=== PATIENT | female | born 2000 | race African-American/Black ===

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

== ENCOUNTER → 2019-11-06 | Outpatient (CLI) | payer BC, OTHER ==
--- NOTE | 2019-11-06 14:52 | US ---
EXAMINATION TYPE: US pelvis complete transvag DATE OF EXAM: 11/06/2019 COMPARISON: NONE CLINICAL HISTORY: N94.10 DYSPAREUNIA. TECHNIQUE: Transvaginal (TV) and Transabdominal (TA) . Transabdominal sonographic images of the pel vis were acquired. Transvaginal sonographic images were medically necessary to better assess the fol lowing anatomy: Ovaries. Date of LMP: Not provided EXAM MEASUREMENTS: Uterus: 7.7 x 3.9 x 5.8 cm Endometrial Stripe: 1.2 cm Right Ovary: 5.3 x 2.2 x 4.5 cm Left Ovary: 3.8 x 1.4 x 3.3 cm 1. Uterus: Retroverted wnl 2. Endometrium: measures 1.2 cm 3. Right Ovary: mixed lesion with peripheral flow measures 2.2 x 1.7 x 1.9, probable hemorrhagic cys t. 4. Left Ovary: wnl Spectral, color and waveform doppler imaging shows good arterial and venous flow within the ovaries (particularly of the enlarged right ovary); there is no evidence for ovarian torsion. 5. Bilateral Adnexa: wnl 6. Posterior cul-de-sac: small amount of free fluid IMPRESSION: 1. Enlarged right ovary containing a 2.2 cm probable hemorrhagic cyst. Arterial and venous waveforms are seen to the enlarged right artery in echogenicity of the right ovary is unremarkable. Therefore o varian torsion was not seen at the time the examination. 2. Small amount of free fluid in posterior cul-de-sac, likely physiologic in nature.
== END | disposition home or self-care (01) ==
LOC: RADUSWWP 14:11
PROVIDERS: ATTEND Family Medicine
DX: N83.8 Other noninflammatory disorders of ovary, fallopian tube and broad ligament (principal)
CPT/HCPCS: 76830; 76856

== ENCOUNTER → 2020-04-23 | Day surgery (SDC) | payer BC, OTHER ==
[2020-04-21 15:40] VITALS: BMI 50.0
[~2020-04-23] MED LIST: IV FLUID CONTINUATION 1,000 ML IV ONE; LACTATED RINGERS 1,000 ML IV SCH; LIDOCAINE 1% (10MG/ML) FOR IV START INTRADERMA ONE; LIDOCAINE 1% INJ 10MG/ML (20 ML MDV) ONE; MIDAZOLAM 2 MG/2 ML VIAL ONE; PROPOFOL 10 MG/ML 20 ML VIAL IV ONE
--- NOTE | 2020-04-23 04:39 | P.GSHP ---
History of Present Illness H&P Date: 04/23/20 CHIEF COMPLAINT: GERD HISTORY OF PRESENT ILLNESS: The patient is a 20-year-old female who presents reports gastroesophageal reflux disease. Upper endoscopy was offered for further evaluation and management. PAST MEDICAL HISTORY: Please see list. PAST SURGICAL HISTORY: Please see list. MEDICATIONS: Please see list. ALLERGIES: Please see list. SOCIAL HISTORY: No illicit drug use FAMILY HISTORY: No reports of Crohn disease or ulcerative colitis. REVIEW OF ORGAN SYSTEMS: CONSTITUTIONAL: No reports of fevers or chills. GI: Denies any blood in stools or constipation. PHYSICAL EXAM: VITAL SIGNS: Stable GENERAL: Well-developed and pleasant in no acute distress. HEENT: No scleral icterus. Extraocular movements grossly intact. Moist buccal mucosa. NECK: Supple without lymphadenopathy. CHEST: Unlabored respirations. Equal bilateral excursions. CARDIOVASCULAR: Regular rate and rhythm. Distal 2+ pulses. ABDOMEN: Soft, nondistended. MUSCULOSKELETAL: No clubbing, cyanosis, or edema. ASSESSMENT: 1. Gastroesophageal reflux disease PLAN: 1. Recommend proceeding with an upper endoscopy Past Medical History Past Medical History: Asthma History of Any Multi-Drug Resistant Organisms: None Reported Past Surgical History: No Surgical Hx Reported Past Anesthesia/Blood Transfusion Reactions: No Reported Reaction, Motion Sickness Smoking Status: Current every day smoker - Past Family History Mother Family Medical History: No Reported History Medications and Allergies Home Medications Medication Instructions Recorded Confirmed Type No Known Home Medications 04/21/20 04/21/20 History Allergies Allergy/AdvReac Type Severity Reaction Status Date / Time No Known Allergies Allergy Verified 04/21/20 15:33
[2020-04-23 09:42] VITALS: TEMP 98.4
[2020-04-23 10:21] VITALS: RESP 18
--- NOTE | 2020-04-23 10:23 | P.PCN ---
Date of Procedure: 04/23/20 Description of Procedure: PREOPERATIVE DIAGNOSIS: Gastroesophageal reflux disease. Morbid obesity. POSTOPERATIVE DIAGNOSIS: Morbid obesity. Gastroesophageal reflux disease. OPERATION: Esophagogastroduodenoscopy with biopsies along antrum. SURGEON: Radha Almanza MD ANESTHESIA: MAC. INDICATIONS: The patient is a 20-year-old female who presents with a history of reflux disease. Benefits and risks of the procedure were described. Informed consent was obtained. DESCRIPTION: The patient was brought into the endoscopy suite and laid in the left lateral decubitus position. An Olympus gastroscope was passed along the posterior oropharynx down to the distal esophagus where the squamocolumnar junction was encountered at 40 cm from the incisors. The stomach was entered and no bile reflux was found. Additional findings are listed below. Biopsies with cold forceps were obtained of the antrum. The first through third portion of the duodenum was examined and unremarkable. Retroflexion of the scope confirmed Hill grade 2 lower esophageal valve. The squamocolumnar junction demonstrated no LA grade A erosive esophagitis. The stomach was desufflated. The patient tolerated the procedure well. FINDINGS: Squamocolumnar junction 36 cm from the incisors. Diaphragmatic hiatus at 36 cm. Hill grade 2 lower esophageal valve. No LA grade A erosive esophagitis. No active duodenitis. RECOMMENDATIONS: Upper endoscopy as needed. Plan - Discharge Summary Discharge Rx Participant: No New Discharge Prescriptions: Continue No Known Home Medications Discharge Medication List No Known Home Medications 04/21/20 [History] Follow up Appointment(s)/Referral(s): [place], [place] [NON-STAFF] - 05/07/20 Patient Instructions/Handouts: Gastritis (DC) Discharge Disposition: HOME SELF-CARE
[2020-04-23 10:38] VITALS: BP 118/84; PULSE 99
== END | disposition home or self-care (01) ==
LOC: ORWHC2ENDO 09:02
PROVIDERS: ATTEND Surgery Plastic and Reconstructive Surgery
DX: K21.9 Gastro-esophageal reflux disease without esophagitis (principal); K29.50 Unspecified chronic gastritis without bleeding; J45.909 Unspecified asthma, uncomplicated; F17.290 Nicotine dependence, other tobacco product, uncomplicated; E66.01 Morbid (severe) obesity due to excess calories; Z68.42 Body mass index [BMI] 45.0-49.9, adult
CPT/HCPCS: 81025; 88305; 43239; J2250; J2001; J2704

== ENCOUNTER → 2020-05-05 | Outpatient (CLI) | payer BC, OTHER ==
[2020-05-05 12:19] VITALS: BMI 51.0
== END | disposition home or self-care (01) ==
LOC: BARWHC3 08:13
PROVIDERS: ATTEND Surgery Plastic and Reconstructive Surgery
DX: E66.01 Morbid (severe) obesity due to excess calories (principal); Z71.3 Dietary counseling and surveillance
CPT/HCPCS: 97804

== ENCOUNTER → 2020-05-09 | Outpatient (CLI) | payer BC, OTHER ==
[2020-05-08 15:20] LABS: HGB 11.7 gm/dL (11.4-16.0); MCH 24.5 pg (25.0-35.0); MCHC 31.7 g/dL (31.0-37.0); MCV 77.2 fL (80.0-100.0); Mean Platelet Volume 8.1; Platelet Count 389 k/uL (150-450); RBC 4.79 m/uL (3.80-5.40); RDW 14.5 % (11.5-15.5); WBC 13.2 k/uL (3.8-10.6)
[2020-05-09 01:34] LABS: Ferritin 24.2 ng/mL (10.0-291.0)
[2020-05-09 01:38] LABS: % Iron Saturation 11.04 (12.00-45.00); African American GFR (CKD) 143.5 (60.0-200.0); Albumin 4.3 g/dL (3.80-4.90); Albumin/Globulin Ratio 1.59 (1.60-3.17); Anion Gap 8.4 mmol/L (4.00-12.00); BUN/Creat Ratio 12.86 Ratio (12.00-20.00); Calcium 9.1 mg/dL (8.7-10.3); Carbon Dioxide 23.6 mmol/L (21.6-31.8); Chol/HDL Ratio 4.55; Globulin 2.7 g/dL (1.6-3.3); LDL Cholesterol,Calculated 90.2 mg/dL (0.0-131.0); Magnesium 1.5 mg/dL (1.5-2.4); Non-African American GFR(CKD) 123.9 (60.0-200.0); Phosphorus 3.4 mg/dL (2.4-5.1); Potassium 4.3 mmol/L (3.5-5.5); Total Bilirubin 0.2 mg/dL (0.3-1.2); VLDL Calculation 26.8 mg/dL (5.00-40.00)
[2020-05-09 04:45] LABS: INR 1.01 (0.90-1.11); Partial Thromboplastin Time 27.6 sec (24.7-29.9); Prothrombin Time 10.8 sec (9.9-11.9)
[2020-05-09 05:37] LABS: Hemoglobin A1C 6.6 % (4.0-6.0)
[2020-05-09 12:19] LABS: Zinc, Serum 43 ug/dL (60-130)
== END | disposition home or self-care (01) ==
LOC: LABWHC1 05-08 14:30
PROVIDERS: ATTEND Surgery Plastic and Reconstructive Surgery
DX: E89.1 Postprocedural hypoinsulinemia (principal); D50.8 Other iron deficiency anemias; K90.89 Other intestinal malabsorption; E55.9 Vitamin D deficiency, unspecified; K74.1 Hepatic sclerosis; N19 Unspecified kidney failure; K50.90 Crohn's disease, unspecified, without complications; E66.01 Morbid (severe) obesity due to excess calories
CPT/HCPCS: 36415; 80053; 80061; 82306; 82525; 82607; 82728; 82746; 83036; 83540; 83550; 83735; 83970; 84100; 84134; 84255; 84425; 84443; 84590; 84630; 85027; 85610; 85730; 93005

== ENCOUNTER → 2020-05-09 | Outpatient (CLI) | payer BC, OTHER | END | disposition home or self-care (01) | LOC: LABWHC1 13:36 | PROVIDERS: ATTEND Surgery Plastic and Reconstructive Surgery | DX: I10 Essential (primary) hypertension (principal); E66.01 Morbid (severe) obesity due to excess calories; K50.90 Crohn's disease, unspecified, without complications; N19 Unspecified kidney failure; K74.1 Hepatic sclerosis; E55.9 Vitamin D deficiency, unspecified; K90.89 Other intestinal malabsorption; D50.8 Other iron deficiency anemias; E89.1 Postprocedural hypoinsulinemia | CPT/HCPCS: 36415; 93005 ==

== ENCOUNTER → 2020-06-16 | Outpatient (CLI) | payer BC, OTHER ==
[2020-06-16 16:59] LABS: HCT 38.8 % (34.0-46.0); HGB 12.9 gm/dL (11.4-16.0); MCH 26.6 pg (25.0-35.0); MCHC 33.1 g/dL (31.0-37.0); MCV 80.3 fL (80.0-100.0); Mean Platelet Volume 8.1; Platelet Count 370 k/uL (150-450); RBC 4.83 m/uL (3.80-5.40); RDW 15.8 % (11.5-15.5); WBC 12.5 k/uL (3.8-10.6)
[2020-06-17 01:33] LABS: Hemoglobin A1C 6.3 % (4.0-6.0)
[2020-06-17 01:59] LABS: Folate, Serum 7.1 ng/mL
[2020-06-17 02:28] LABS: % Iron Saturation 34.01 (12.00-45.00); African American GFR (CKD) 143.5 (60.0-200.0); Albumin 4.6 g/dL (3.80-4.90); Albumin/Globulin Ratio 1.59 (1.60-3.17); Anion Gap 8.7 mmol/L (4.00-12.00); BUN/Creat Ratio 14.29 Ratio (12.00-20.00); Calcium 9.7 mg/dL (8.7-10.3); Carbon Dioxide 24.3 mmol/L (21.6-31.8); Chol/HDL Ratio 4.26; Ferritin 904.5 ng/mL (10.0-291.0); Globulin 2.9 g/dL (1.6-3.3); LDL Cholesterol,Calculated 101.2 mg/dL (0.0-131.0); Magnesium 1.7 mg/dL (1.5-2.4); Non-African American GFR(CKD) 123.9 (60.0-200.0); Phosphorus 3.3 mg/dL (2.4-5.1); Potassium 4.3 mmol/L (3.5-5.5); Total Bilirubin 0.3 mg/dL (0.3-1.2); Total Protein 7.5 g/dL (6.2-8.2); VLDL Calculation 22.8 mg/dL (5.00-40.00)
[2020-06-17 03:07] LABS: INR 1.02 (0.90-1.11); Partial Thromboplastin Time 30.1 sec (24.7-29.9); Prothrombin Time 10.9 sec (9.9-11.9)
[2020-06-17 11:04] LABS: Zinc, Serum 59 ug/dL (60-130)
[2020-06-18 07:29] LABS: Vit B1(Thiamine) 61 ug/L (38-122)
== END | disposition home or self-care (01) ==
LOC: LABWHC1 16:01
PROVIDERS: ATTEND Surgery Plastic and Reconstructive Surgery
DX: E89.1 Postprocedural hypoinsulinemia (principal); D50.8 Other iron deficiency anemias; K90.89 Other intestinal malabsorption; E55.9 Vitamin D deficiency, unspecified; K74.1 Hepatic sclerosis; N19 Unspecified kidney failure; K50.90 Crohn's disease, unspecified, without complications; E66.01 Morbid (severe) obesity due to excess calories
CPT/HCPCS: 36415; 80053; 80061; 82306; 82525; 82607; 82728; 82746; 83036; 83540; 83550; 83735; 83970; 84100; 84134; 84255; 84425; 84443; 84590; 84630; 85027; 85610; 85730

== ENCOUNTER → 2020-06-18 | Outpatient (CLI) | payer BC, OTHER ==
[2020-06-18 12:37] VITALS: BP 134/85; PULSE 85; TEMP 98.2; BMI 51.4
--- NOTE | 2020-06-18 12:46 | P.PN ---
Subjective Progress Note Date: 06/18/20 DATE OF SERVICE: 06/18/2020 CHIEF COMPLAINT: Morbid obesity HISTORY OF PRESENT ILLNESS: Verenice Dawkins is a 20-year-old female who comes with lifelong morbid obesity. She comes in with new diagnoses of severe vitamin D deficiency, diabetes type 2, iron deficiency anemia. She has been started on hypoglycemic medications by her doctors. She received iron for severe iron deficiency anemia. She reports feeling better. She is looking into the sleeve gastrectomy At height of 5 feet 6 inches, her ideal body weight is 154 pounds. She comes in 316 pounds from 311 pounds, 2 weeks ago. She has gained 5 pounds in 2 weeks. Her body mass index is 51.2. She is 162 pounds overweight. PHYSICAL EXAM: VITAL SIGNS: Height 5 foot 6 inches, weight 318 pounds. BMI 51.4 Vital Signs Temp 98.2 F 06/18/20 12:25 Pulse 85 06/18/20 12:25 Resp BP 134/85 06/18/20 12:25 Pulse Ox GENERAL: Well-developed in no acute distress. HEENT: No scleral icterus. Extraocular movements grossly intact. Hears conversational speech. No nasal drainage. NECK: Supple without lymphadenopathy. CHEST: Nonlabored respirations with equal bilateral excursions. CARDIOVASCULAR: Regular rate and rhythm. Distal 2+ pulses. ABDOMEN: Obese, soft, nontender, nondistended. MUSCULOSKELETAL: No clubbing, cyanosis. NEURO: No focal or lateralizing signs. Cranial nerves 2 through 12 grossly within normal limits. PSYCH: Appropriate affect. Alert and oriented to person, place and time. SKIN: Good skin turgor. Well perfused. LABS: Reviewed. WBC elevated, Hgb A1c 6.3%, Pre-albumin is low. Vitamin A is low. Vitamin D is low. Zinc is low. ASSESSMENT: 1. Morbid obesity due to excess calories 2. Body mass index to 51.4. 3. Osteoarthritis of the knees. 4. Osteoarthritis of the lower back. 5. Persistent tachycardia 6. Diabetes type 2, new 7. Iron deficiency anemia 8. Vitamin A deficiency 9. Vitamin D deficiency 10. Zinc deficiency 11. Leukocytosis PLAN: 1. She comes in with improved correction of multiple labs. 2. She has persistent leukocytosis. Recommend referral to vaccine manager. Objective - Vital Signs Vital signs: Vital Signs Temp 98.2 F 06/18/20 12:25 Pulse 85 06/18/20 12:25 Resp BP 134/85 06/18/20 12:25 Pulse Ox Intake & Output 06/17/20 06/18/20 06/18/20 18:59 06:59 18:59 Weight 144.469 kg
== END | disposition home or self-care (01) ==
LOC: BARWHC3 11:40
PROVIDERS: ATTEND Surgery Plastic and Reconstructive Surgery
DX: E66.01 Morbid (severe) obesity due to excess calories (principal); M17.0 Bilateral primary osteoarthritis of knee; R00.0 Tachycardia, unspecified; E11.9 Type 2 diabetes mellitus without complications; D50.9 Iron deficiency anemia, unspecified; E50.9 Vitamin A deficiency, unspecified; E55.9 Vitamin D deficiency, unspecified; E60 Dietary zinc deficiency; D72.829 Elevated white blood cell count, unspecified; Z68.43 Body mass index [BMI] 50.0-59.9, adult
CPT/HCPCS: 99211